=== PATIENT | female | born 1940 | race Caucasian/White ===

== ENCOUNTER 2017-09-10 21:20 | Emergency (ER) | payer MEDICARE, OTHER ==
[2017-09-10] MEDS ORDERED: ONDANSETRON HCL/PF 4 MG/ 2ML VIAL IVP ONE (21:30)
[2017-09-10] MEDS ORDERED: ONDANSETRON HCL/PF 4 MG/ 2ML VIAL ONE (21:36)
[2017-09-10] MEDS ORDERED: LACTATED RINGERS 1,000 ML IV ONE ×3 (21:39→22:30)
--- NOTE | 2017-09-10 21:49 | ED Physician Documentation ---
General Adult - HISTORIAN Historian: patient - HPI Stated Complaint: N/V/D Chief Complaint: General Adult Additional Information: Began vomiting 09/06 in the evening, along with watery diarrhea. She has continued, and vomited/retched twice today. Has urinated 4-5 times in small amounts. Just feels weak. Denies pain, fever. Got a little sweaty when vomiting. Ate half a banana and some toast today. Nauseated at the time of exam. - ROS CONST: denies: fever GI/: denies: abdominal pain - PAST HX Past History: other (RLS) Surgeries/Procedures: other (tonsillectomy when 12 y/o) Allergies/Adverse Reactions: Allergies Allergy/AdvReac Type Severity Reaction Status Date / Time No Known Allergies Allergy Verified 09/10/17 21:36 Home Medications: Ambulatory Orders Medication Instructions Recorded Chlorthalidone [Thalitone] 25 mg PO DAILY u2 08/23/12 Ropinirole HCl 0.5 mg PO QID u2 MDD 0.5@ 10;30, 08/23/12 0.5@1330, 0.5@1630 Clonazepam 1 mg PO HS u2 05/21/15 Esomeprazole Magnesium [Nexium] 40 mg PO DAILY 05/21/15 Ferrous Sulfate 325 mg PO DAILY u2 05/21/15 Flaxseed 340 gm PO DAILY 05/21/15 Gabapentin 300 mg PO HS av 05/21/15 Plant Stanol Carlie [Cholest Off] 450 mg PO DAILY u2 05/21/15 - SOCIAL HX Smoking History: non-smoker - FAMILY HX Family History: No - VITAL SIGNS Vital Signs: Vital Signs Temp Pulse Resp BP Pulse Ox 97.9 F 76 16 178/79 98 09/10/17 21:20 09/10/17 21:20 09/10/17 21:20 09/10/17 21:20 09/10/17 21:20 - REVIEWED ASSESSMENTS Nursing Assessment Reviewed: Yes Vitals Reviewed: Yes Progress - Progress Progress: 2L LR. Nausea much better. Has urinated. UA with ketornes. Labs good except K, Na slightly low. Home with Zofran. ED Results Lab/Radiology - Orders Orders: ED Orders Category Date Time Status Place IV Lock 1T Care 09/10/17 21:43 Active CBC/PLATELET/DIFF Routine Lab 09/10/17 Ordered CMP Routine Lab 09/10/17 Ordered LIPASE Stat Lab 09/10/17 Ordered Lactated Ringers [Ringers, Lactated] 1,000 ml Med 09/10/17 21:39 Discontinued IV .STK-MED Lactated Ringers [Ringers, Lactated] 1,000 ml Med 09/10/17 21:40 Active IV Q1H Ondansetron HCl/Pf [Zofran 4 mg/2 ml] Med 09/10/17 21:36 Discontinued 4 mg .ROUTE .STK-MED ONE Ondansetron HCl/Pf [Zofran 4 mg/2 ml] Med 09/10/17 21:30 Discontinued 4 mg IVP NOW ONE General Adult Physical Exam - PHYSICAL EXAM GENERAL APPEARANCE: mild distress EENT: eye inspection normal, ENT inspection normal (except oropharynx dry), pharynx normal NECK: normal inspection, supple RESPIRATORY: no resp distress, breath sounds normal CVS: reg rate & rhythm, heart sounds normal ABDOMEN: soft, no organomegaly, normal bowel sounds, no distension, non-tender BACK: normal inspection, no CVA tenderness SKIN: warm/dry, normal color EXTREMITIES: no evidence of injury NEURO: CN's nml as tested, motor nml, sensation nml, cognition normal Discharge Clincal Impression: Nausea vomiting and diarrhea Referrals: Lila Maurice MD [Primary Care Provider] - 2 Days Condition: Fair Disposition: 01 HOME, SELF-CARE Decision to Admit: NO Decision Time: 23:15
[2017-09-10 21:53] LABS: BASOPHILS % 0.5 (0.0-1.5); EOSINOPHILS % 0.5 % (0.0-6.8); MEAN CORPUSCULAR HEMOGLOBIN 29.9 pg (28.0-34.0); MEAN CORPUSCULAR VOLUME 86.3 fl (80.0-100.0); MONOCYTES % 8.5 % (0.0-11.0)
[2017-09-10 22:03] LABS: eGFR (African) > 60; eGFR (Non-African) > 60
[2017-09-10] MEDS ORDERED: ONDANSETRON HCL 4 MG TAB.RAPDIS ONE (23:18)
[2017-09-10] MEDS ORDERED: ONDANSETRON HCL 4 MG TAB.RAPDIS PO ONE (23:18)
[2017-09-10 23:32] VITALS: BP 168/69
[2017-09-11 07:42] LABS: APPEARANCE,URINE CLEAR (CLEAR); COLOR,URINE YELLOW (YELLOW); OCCULT BLOOD,URINE NEGATIVE (NEGATIVE); UROBILINOGEN URINE 0.2 Eu (0.2-1.0)
== END 2017-09-10 23:20 | disposition home or self-care (01) ==
LOC: ED 21:20
DX: R11.2 Nausea with vomiting, unspecified (principal); R19.7 Diarrhea, unspecified
CPT/HCPCS: 80053; 81002; 83690; 85025; J2405; J7120; 96365; 96366; 96375; 99283; S1016